=== PATIENT | male | born 1965 | race Native Hawaiian/Other Pacific Islander ===

== ENCOUNTER 2019-12-01 14:15 | Outpatient (CLI) | payer BC | END 2019-12-01 19:13 | disposition home or self-care (01) | LOC: RAD 14:15 | DX: M79.661 Pain in right lower leg (principal) ==

== ENCOUNTER 2020-04-13 13:07 | Outpatient (CLI) | payer BC ==
[~2020-04-13] VITALS: Ht 182.9 cm; Wt 164.2 kg
== END 2020-04-13 19:42 | disposition home or self-care (01) ==
LOC: DIABINF 13:07
PROVIDERS: ATTEND Internal Medicine Endocrinology, Diabetes & Metabolism
DX: E88.81 Metabolic syndrome and other insulin resistance (principal); I10 Essential (primary) hypertension; M10.9 Gout, unspecified; E78.2 Mixed hyperlipidemia; K21.9 Gastro-esophageal reflux disease without esophagitis; R53.83 Other fatigue; Z68.42 Body mass index [BMI] 45.0-49.9, adult; N20.0 Calculus of kidney; E55.9 Vitamin D deficiency, unspecified; H11.32 Conjunctival hemorrhage, left eye
CPT/HCPCS: 82948; 96365; 96366; 96521; 99205; J1718; J1815

== ENCOUNTER 2020-04-14 12:17 | Outpatient (CLI) | payer BC ==
[~2020-04-14] VITALS: Ht 185.4 cm; Wt 164.2 kg
== END 2020-04-14 20:10 | disposition home or self-care (01) ==
LOC: DIABINF 12:17
PROVIDERS: ATTEND Internal Medicine Endocrinology, Diabetes & Metabolism
DX: E88.81 Metabolic syndrome and other insulin resistance (principal); I10 Essential (primary) hypertension; M10.9 Gout, unspecified; E78.2 Mixed hyperlipidemia; K21.9 Gastro-esophageal reflux disease without esophagitis; R53.83 Other fatigue; Z68.42 Body mass index [BMI] 45.0-49.9, adult; N20.0 Calculus of kidney; E55.9 Vitamin D deficiency, unspecified; H11.32 Conjunctival hemorrhage, left eye
CPT/HCPCS: 82948; 96365; 96366; 96521; 99214; J1718; J1815

== ENCOUNTER 2020-04-20 12:41 | Outpatient (CLI) | payer BC ==
[~2020-04-20] VITALS: Ht 185.4 cm; Wt 164.2 kg
== END 2020-04-20 21:12 | disposition home or self-care (01) ==
LOC: DIABINF 12:41
PROVIDERS: ATTEND Internal Medicine Endocrinology, Diabetes & Metabolism
DX: E88.81 Metabolic syndrome and other insulin resistance (principal); I10 Essential (primary) hypertension; M10.9 Gout, unspecified; E78.2 Mixed hyperlipidemia; K21.9 Gastro-esophageal reflux disease without esophagitis; R53.83 Other fatigue; Z68.42 Body mass index [BMI] 45.0-49.9, adult; R53.82 Chronic fatigue, unspecified; M50.33 Other cervical disc degeneration, cervicothoracic region
CPT/HCPCS: 82948; 96365; 96366; 96521; 99214; J1718; J1815

== ENCOUNTER 2020-04-20 14:30 | Outpatient (CLI) | payer BC, OTHER | END 2020-04-20 21:14 | disposition home or self-care (01) | LOC: INF 14:30 | PROVIDERS: ATTEND Internal Medicine | DX: Z23 Encounter for immunization (principal) | CPT/HCPCS: 96372 ==

== ENCOUNTER 2020-04-21 08:04 | Outpatient (CLI) | payer BC ==
[~2020-04-21] VITALS: Ht 185.4 cm; Wt 164.2 kg
== END 2020-04-21 21:24 | disposition home or self-care (01) ==
LOC: DIABINF 08:04
PROVIDERS: ATTEND Internal Medicine Endocrinology, Diabetes & Metabolism
DX: E88.81 Metabolic syndrome and other insulin resistance (principal); I10 Essential (primary) hypertension; E78.2 Mixed hyperlipidemia; K21.9 Gastro-esophageal reflux disease without esophagitis; M10.9 Gout, unspecified; R53.82 Chronic fatigue, unspecified; Z68.42 Body mass index [BMI] 45.0-49.9, adult; H11.32 Conjunctival hemorrhage, left eye; M50.33 Other cervical disc degeneration, cervicothoracic region; M17.0 Bilateral primary osteoarthritis of knee
CPT/HCPCS: 82948; 96365; 96366; 96521; 99214; J1718; J1815

== ENCOUNTER 2020-04-27 12:55 | Outpatient (CLI) | payer BC ==
[~2020-04-27] VITALS: Ht 182.9 cm; Wt 164.2 kg
== END 2020-04-27 19:57 | disposition home or self-care (01) ==
LOC: DIABINF 12:55
PROVIDERS: ATTEND Internal Medicine Endocrinology, Diabetes & Metabolism
DX: E88.81 Metabolic syndrome and other insulin resistance (principal); I10 Essential (primary) hypertension; E78.2 Mixed hyperlipidemia; K21.9 Gastro-esophageal reflux disease without esophagitis; M10.9 Gout, unspecified; R53.82 Chronic fatigue, unspecified; Z68.42 Body mass index [BMI] 45.0-49.9, adult; M50.33 Other cervical disc degeneration, cervicothoracic region; M17.0 Bilateral primary osteoarthritis of knee; Z87.442 Personal history of urinary calculi
CPT/HCPCS: 82948; 96365; 96366; 96521; 99213; J1718; J1815

== ENCOUNTER 2020-05-04 12:55 | Outpatient (CLI) | payer BC ==
[~2020-05-04] VITALS: Ht 185.4 cm; Wt 164.2 kg
== END 2020-05-04 22:15 | disposition home or self-care (01) ==
LOC: DIABINF 12:55
PROVIDERS: ATTEND Internal Medicine Endocrinology, Diabetes & Metabolism
DX: E88.81 Metabolic syndrome and other insulin resistance (principal); I10 Essential (primary) hypertension; E78.2 Mixed hyperlipidemia; K21.9 Gastro-esophageal reflux disease without esophagitis; M10.9 Gout, unspecified; R53.82 Chronic fatigue, unspecified; Z68.42 Body mass index [BMI] 45.0-49.9, adult; M50.33 Other cervical disc degeneration, cervicothoracic region; M17.0 Bilateral primary osteoarthritis of knee; Z87.442 Personal history of urinary calculi
CPT/HCPCS: 82948; 96365; 96366; 96521; 99214; J1718; J1815

== ENCOUNTER 2020-05-11 12:35 | Outpatient (CLI) | payer BC ==
[~2020-05-11] VITALS: Ht 185.4 cm; Wt 164.2 kg
== END 2020-05-11 22:04 | disposition home or self-care (01) ==
LOC: DIABINF 12:35
PROVIDERS: ATTEND Internal Medicine Endocrinology, Diabetes & Metabolism
DX: E88.81 Metabolic syndrome and other insulin resistance (principal); I10 Essential (primary) hypertension; E78.2 Mixed hyperlipidemia; R73.03 Prediabetes; M10.9 Gout, unspecified; K21.9 Gastro-esophageal reflux disease without esophagitis; R53.82 Chronic fatigue, unspecified; Z68.42 Body mass index [BMI] 45.0-49.9, adult; E55.9 Vitamin D deficiency, unspecified; H11.32 Conjunctival hemorrhage, left eye; M50.30 Other cervical disc degeneration, unspecified cervical region; M17.0 Bilateral primary osteoarthritis of knee
CPT/HCPCS: J1815

== ENCOUNTER 2020-05-17 11:22 | Outpatient (CLI) | payer BC, OTHER | END 2020-05-17 21:15 | disposition home or self-care (01) | LOC: INF 11:22 | PROVIDERS: ATTEND Internal Medicine | DX: Z23 Encounter for immunization (principal) | CPT/HCPCS: 96372 ==

== ENCOUNTER 2020-05-18 13:10 | Outpatient (CLI) | payer BC ==
[~2020-05-18] VITALS: Ht 185.4 cm; Wt 164.2 kg
== END 2020-05-18 22:44 | disposition home or self-care (01) ==
LOC: DIABINF 13:10
PROVIDERS: ATTEND Internal Medicine Endocrinology, Diabetes & Metabolism
DX: E88.81 Metabolic syndrome and other insulin resistance (principal); I10 Essential (primary) hypertension; M10.9 Gout, unspecified; E78.2 Mixed hyperlipidemia; K21.9 Gastro-esophageal reflux disease without esophagitis; R53.82 Chronic fatigue, unspecified; Z68.42 Body mass index [BMI] 45.0-49.9, adult; Z87.898 Personal history of other specified conditions; E55.9 Vitamin D deficiency, unspecified; H11.32 Conjunctival hemorrhage, left eye; M50.30 Other cervical disc degeneration, unspecified cervical region; M17.0 Bilateral primary osteoarthritis of knee
CPT/HCPCS: 82948; 96365; 96366; 96521; 99214; J1718; J1815

== ENCOUNTER 2020-05-25 13:06 | Outpatient (CLI) | payer BC ==
[~2020-05-25] VITALS: Ht 185.4 cm; Wt 164.2 kg
== END 2020-05-25 20:29 | disposition home or self-care (01) ==
LOC: DIABINF 13:06
PROVIDERS: ATTEND Internal Medicine Endocrinology, Diabetes & Metabolism
DX: E88.81 Metabolic syndrome and other insulin resistance (principal); I10 Essential (primary) hypertension; M10.9 Gout, unspecified; E78.2 Mixed hyperlipidemia; K21.9 Gastro-esophageal reflux disease without esophagitis; R53.82 Chronic fatigue, unspecified; Z68.42 Body mass index [BMI] 45.0-49.9, adult; Z87.898 Personal history of other specified conditions; E55.9 Vitamin D deficiency, unspecified; H11.32 Conjunctival hemorrhage, left eye; M50.30 Other cervical disc degeneration, unspecified cervical region; M17.0 Bilateral primary osteoarthritis of knee
CPT/HCPCS: 82948; 96365; 96366; 96521; 99214; J1718; J1815

== ENCOUNTER 2020-06-01 12:41 | Outpatient (CLI) | payer BC ==
[~2020-06-01] VITALS: Ht 185.4 cm; Wt 164.2 kg
== END 2020-06-01 21:34 | disposition home or self-care (01) ==
LOC: DIABINF 12:41
PROVIDERS: ATTEND Internal Medicine Endocrinology, Diabetes & Metabolism
DX: E88.81 Metabolic syndrome and other insulin resistance (principal); I10 Essential (primary) hypertension; M10.9 Gout, unspecified; E78.2 Mixed hyperlipidemia; K21.9 Gastro-esophageal reflux disease without esophagitis; R53.82 Chronic fatigue, unspecified; Z68.42 Body mass index [BMI] 45.0-49.9, adult; Z87.898 Personal history of other specified conditions; E55.9 Vitamin D deficiency, unspecified; H11.32 Conjunctival hemorrhage, left eye; M50.30 Other cervical disc degeneration, unspecified cervical region; M17.0 Bilateral primary osteoarthritis of knee
CPT/HCPCS: 82948; 96365; 96366; 96521; 99214; J1718; J1815

== ENCOUNTER 2020-06-22 12:46 | Outpatient (CLI) | payer BC ==
[~2020-06-22] VITALS: Ht 182.9 cm; Wt 164.2 kg
== END 2020-06-22 19:22 | disposition home or self-care (01) ==
LOC: DIABINF 12:46
PROVIDERS: ATTEND Internal Medicine Endocrinology, Diabetes & Metabolism
DX: E88.81 Metabolic syndrome and other insulin resistance (principal); I10 Essential (primary) hypertension; E78.2 Mixed hyperlipidemia; K21.9 Gastro-esophageal reflux disease without esophagitis; M10.9 Gout, unspecified; R53.82 Chronic fatigue, unspecified; Z68.42 Body mass index [BMI] 45.0-49.9, adult; M50.30 Other cervical disc degeneration, unspecified cervical region; Z87.442 Personal history of urinary calculi; E55.9 Vitamin D deficiency, unspecified; M17.0 Bilateral primary osteoarthritis of knee
CPT/HCPCS: 82948; 96365; 96366; 96521; J1815; J1817

== ENCOUNTER 2020-06-29 12:38 | Outpatient (CLI) | payer BC ==
[~2020-06-29] VITALS: Ht 182.9 cm; Wt 164.2 kg
== END 2020-06-29 21:13 | disposition home or self-care (01) ==
LOC: DIABINF 12:38
PROVIDERS: ATTEND Internal Medicine Endocrinology, Diabetes & Metabolism
DX: E88.81 Metabolic syndrome and other insulin resistance (principal); I10 Essential (primary) hypertension; M10.9 Gout, unspecified; E78.2 Mixed hyperlipidemia; K21.9 Gastro-esophageal reflux disease without esophagitis; R53.82 Chronic fatigue, unspecified; Z68.42 Body mass index [BMI] 45.0-49.9, adult; Z87.898 Personal history of other specified conditions; E55.9 Vitamin D deficiency, unspecified; H11.32 Conjunctival hemorrhage, left eye; M50.30 Other cervical disc degeneration, unspecified cervical region; M17.0 Bilateral primary osteoarthritis of knee
CPT/HCPCS: 82948; 96365; 96366; 96521; J1815; J1817

== ENCOUNTER 2020-07-06 13:02 | Outpatient (CLI) | payer BC ==
[~2020-07-06] VITALS: Ht 185.4 cm; Wt 164.2 kg
== END 2020-07-06 21:37 | disposition home or self-care (01) ==
LOC: DIABINF 13:02
PROVIDERS: ATTEND Internal Medicine Endocrinology, Diabetes & Metabolism
DX: E88.81 Metabolic syndrome and other insulin resistance (principal); I10 Essential (primary) hypertension; M10.9 Gout, unspecified; E78.2 Mixed hyperlipidemia; K21.9 Gastro-esophageal reflux disease without esophagitis; R53.82 Chronic fatigue, unspecified; Z68.42 Body mass index [BMI] 45.0-49.9, adult; Z87.898 Personal history of other specified conditions; E55.9 Vitamin D deficiency, unspecified; H11.32 Conjunctival hemorrhage, left eye; M50.30 Other cervical disc degeneration, unspecified cervical region; M17.0 Bilateral primary osteoarthritis of knee
CPT/HCPCS: 82948; 96365; 96366; 96521; J1815; J1817

== ENCOUNTER 2020-07-20 13:16 | Outpatient (CLI) | payer BC ==
[~2020-07-20] VITALS: Ht 182.9 cm; Wt 161.5 kg
== END 2020-07-20 21:06 | disposition home or self-care (01) ==
LOC: DIABINF 13:16
PROVIDERS: ATTEND Internal Medicine Endocrinology, Diabetes & Metabolism
DX: E88.81 Metabolic syndrome and other insulin resistance (principal); I10 Essential (primary) hypertension; M10.9 Gout, unspecified; E78.2 Mixed hyperlipidemia; K21.9 Gastro-esophageal reflux disease without esophagitis; R53.82 Chronic fatigue, unspecified; Z68.42 Body mass index [BMI] 45.0-49.9, adult; Z87.898 Personal history of other specified conditions; E55.9 Vitamin D deficiency, unspecified; M50.30 Other cervical disc degeneration, unspecified cervical region; M17.0 Bilateral primary osteoarthritis of knee; Z86.16 Personal history of COVID-19; M60.88 Other myositis, other site
CPT/HCPCS: 82948; 96365; 96366; 96521; J1815; J1817

== ENCOUNTER 2020-08-03 13:15 | Outpatient (CLI) | payer BC ==
[~2020-08-03] VITALS: Ht 182.9 cm; Wt 161.5 kg
== END 2020-08-03 22:23 | disposition home or self-care (01) ==
LOC: DIABINF 13:15
PROVIDERS: ATTEND Internal Medicine Endocrinology, Diabetes & Metabolism
DX: E88.81 Metabolic syndrome and other insulin resistance (principal); I10 Essential (primary) hypertension; M10.9 Gout, unspecified; E78.2 Mixed hyperlipidemia; K21.9 Gastro-esophageal reflux disease without esophagitis; R53.82 Chronic fatigue, unspecified; Z68.42 Body mass index [BMI] 45.0-49.9, adult; Z87.898 Personal history of other specified conditions; E55.9 Vitamin D deficiency, unspecified; M50.30 Other cervical disc degeneration, unspecified cervical region; M17.0 Bilateral primary osteoarthritis of knee; Z86.16 Personal history of COVID-19; M60.88 Other myositis, other site
CPT/HCPCS: 82948; 96365; 96366; 96521; J1815; J1817

== ENCOUNTER 2020-08-17 13:03 | Outpatient (CLI) | payer BC | END 2020-08-17 16:00 | disposition home or self-care (01) | LOC: DIABINF 13:03 | PROVIDERS: ATTEND Nurse Practitioner | DX: E88.81 Metabolic syndrome and other insulin resistance (principal); K21.9 Gastro-esophageal reflux disease without esophagitis; E78.2 Mixed hyperlipidemia; I10 Essential (primary) hypertension; M10.9 Gout, unspecified; M60.88 Other myositis, other site; E55.9 Vitamin D deficiency, unspecified; Z87.442 Personal history of urinary calculi; R53.82 Chronic fatigue, unspecified; M50.33 Other cervical disc degeneration, cervicothoracic region; M17.0 Bilateral primary osteoarthritis of knee; E66.01 Morbid (severe) obesity due to excess calories; Z68.42 Body mass index [BMI] 45.0-49.9, adult | CPT/HCPCS: 82948; 96365; 96366; 96521; 99214; J1817 ==

== ENCOUNTER 2020-09-14 12:58 | Outpatient (CLI) | payer BC ==
[~2020-09-14] VITALS: Ht 182.9 cm; Wt 161.5 kg
== END 2020-09-14 23:38 | disposition home or self-care (01) ==
LOC: DIABINF 12:58
PROVIDERS: ATTEND Nurse Practitioner
DX: E88.81 Metabolic syndrome and other insulin resistance (principal); I10 Essential (primary) hypertension; M10.9 Gout, unspecified; E78.2 Mixed hyperlipidemia; K21.9 Gastro-esophageal reflux disease without esophagitis; R53.82 Chronic fatigue, unspecified; Z68.42 Body mass index [BMI] 45.0-49.9, adult; Z87.898 Personal history of other specified conditions; E55.9 Vitamin D deficiency, unspecified; M50.30 Other cervical disc degeneration, unspecified cervical region; M17.0 Bilateral primary osteoarthritis of knee; U07.1 COVID-19; M60.9 Myositis, unspecified
CPT/HCPCS: 82948; 96365; 96366; 96521; J1815; J1817

== ENCOUNTER 2020-09-28 13:22 | Outpatient (CLI) | payer BC ==
[~2020-09-28] VITALS: Ht 182.9 cm; Wt 161.5 kg
== END 2020-09-28 19:03 | disposition home or self-care (01) ==
LOC: DIABINF 13:22
PROVIDERS: ATTEND Nurse Practitioner
DX: R73.03 Prediabetes (principal); I10 Essential (primary) hypertension; E78.2 Mixed hyperlipidemia; M10.9 Gout, unspecified; K21.9 Gastro-esophageal reflux disease without esophagitis; E55.9 Vitamin D deficiency, unspecified
CPT/HCPCS: 82948; 96365; 96366; 96521; J1815; J1817